=== PATIENT | female | born 1950 ===

== ENCOUNTER 2018-10-04 10:05 | Outpatient (CLI) | payer OTHER ==
[~2018-10-04] VITALS: Ht 160 cm; Wt 126.6 kg
[2018-10-04] MEDS ORDERED: FLONASE16 GM NASAL (13:12)
== END 2018-10-04 10:20 | disposition home or self-care (01) ==
LOC: OFIC 805 10:05
DX: J31.0 Chronic rhinitis (principal); J37.0 Chronic laryngitis